=== PATIENT | male | born 1940 | race Caucasian/White ===

== ENCOUNTER 2016-07-19 08:01 | Outpatient (CLI) | payer MEDICARE, OTHER ==
[2016-07-19 11:07] LABS: BASOPHILS % (AUTO) 0.3 %; EOSINOPHILS # (AUTO) 0.2 10^3/uL (0.0-0.7); EOSINOPHILS % (AUTO) 3.1 %; HCT - HEMATOCRIT 43.4 % (42.0-52.0); HGB - HEMOGLOBIN 14.8 g/dL (14.0-18.0); LYMPHOCYTES # (AUTO) 1.3 10^3/uL (1.5-3.5); LYMPHOCYTES % (AUTO) 21.7 %; MEAN CORPUSCULAR HEMOGLOBIN 32.2 pg (27.0-31.0); MEAN CORPUSCULAR HGB CONC 34.1 g/dL (32.0-36.0); MEAN CORPUSCULAR VOLUME 94.6 fL (80.0-94.0); MEAN PLATELET VOLUME 9.6 fL (7.4-11.4); MONOCYTES # (AUTO) 0.9 10^3/uL (0.0-1.0); MONOCYTES % (AUTO) 15.4 %; NEUTROPHILS # (AUTO) 3.5 10^3/uL (1.5-6.6); NEUTROPHILS % (AUTO) 59.5 %; RED BLOOD COUNT 4.59 10^6/uL (4.70-6.10); RED CELL DISTRIBUTION WIDTH 14.2 % (12.0-15.0); UNCORRECTED WHITE BLOOD COUNT 5.9 x10^3/uL; WHITE BLOOD COUNT 5.9 x10^3/uL (4.8-10.8)
[2016-07-19 11:23] LABS: ALBUMIN/GLOBULIN RATIO 1.4 (1.0-2.2); BILIRUBIN,TOTAL 0.9 mg/dL (0.2-1.0); BUN - BLOOD UREA NITROGEN 21 mg/dL (6-20); CALCIUM 9.1 mg/dL (8.5-10.3); CARBON DIOXIDE - CO2 28 mmol/L (21-32); CHLORIDE 106 mmol/L (101-111); CHOL/HDL RATIO 2.6 (<5.0); CHOLESTEROL 204 mg/dL; GFR - MDRD 72 (>89); GLUCOSE 93 mg/dL (70-100); HDL CHOLESTEROL 77 mg/dL; LDL/HDL RATIO 1.5 (<3.6); POTASSIUM 3.9 mmol/L (3.5-5.0); SODIUM 140 mmol/L (135-145); TOTAL PROTEIN 6.8 g/dL (6.7-8.2); TRIGLYCERIDES 60 mg/dL; URIC ACID 3.7 mg/dL (2.6-7.2); VLDL CHOLESTEROL 12 mg/dL
== END 2016-07-19 08:02 | disposition home or self-care (01) ==
LOC: LAB.F 08:01
PROVIDERS: ATTEND Family Medicine
DX: Z00.00 Encounter for general adult medical examination without abnormal findings (principal)
CPT/HCPCS: 36415; 80053; 80061; 84550; 85025

== ENCOUNTER 2017-09-03 10:51 | Outpatient (CLI) | payer MEDICARE, OTHER ==
[2017-09-03 18:06] LABS: ALBUMIN 3.6 g/dL (3.2-5.5); ALBUMIN/GLOBULIN RATIO 1.1 (1.0-2.2); ALKALINE PHOSPHATASE 61 IU/L (42-121); ALT ALANINE AMINOTRANSFERASE 16 IU/L (10-60); AST ASPARTATE AMINOTRANSFERASE 26 IU/L (10-42); BILIRUBIN,TOTAL 0.9 mg/dL (0.2-1.0); BUN - BLOOD UREA NITROGEN 15 mg/dL (6-20); CALCIUM 8.9 mg/dL (8.5-10.3); CARBON DIOXIDE - CO2 28 mmol/L (21-32); CHLORIDE 107 mmol/L (101-111); CHOL/HDL RATIO 2.7 (<5.0); CHOLESTEROL 213 mg/dL; CREATININE 0.9 mg/dL (0.6-1.2); GFR - MDRD 81 (>89); GLUCOSE 92 mg/dL (70-100); HDL CHOLESTEROL 80 mg/dL; LDL CHOLESTEROL,CALCULATED 120 mg/dL; LDL/HDL RATIO 1.5 (<3.6); SODIUM 140 mmol/L (135-145); TOTAL PROTEIN 6.9 g/dL (6.7-8.2); URIC ACID 3.8 mg/dL (2.6-7.2); VLDL CHOLESTEROL 13 mg/dL
== END 2017-09-03 10:52 | disposition home or self-care (01) ==
LOC: LAB.F 10:51
PROVIDERS: ATTEND Family Medicine
DX: Z00.00 Encounter for general adult medical examination without abnormal findings (principal); E78.5 Hyperlipidemia, unspecified; I10 Essential (primary) hypertension; C61 Malignant neoplasm of prostate; M10.9 Gout, unspecified
CPT/HCPCS: 36415; 80053; 80061; 83721; 84153; 84550

== ENCOUNTER 2017-11-04 07:40 | Day surgery (SDC) | payer MEDICARE, OTHER ==
[2017-11-04] MEDS ORDERED: LACTATED RINGERS 1,000 ML IV ONE (08:23)
[2017-11-04] MEDS ORDERED: MIDAZOLAM 2 MG/2 ML VIAL IVP ONE (09:30)
[2017-11-04] MEDS ORDERED: fentaNYL 250 MCG/5 ML VIAL IVP ONE (09:30)
[2017-11-04 10:24] VITALS: BP 122/78
== END 2017-11-04 07:41 | disposition home or self-care (01) ==
LOC: SDS 07:40
PROVIDERS: ATTEND Surgery
PROC: 0DBL8ZZ Excision of Transverse Colon, Via Natural or Artificial Opening Endoscopic (ICD-10-PCS; 2017-11-04)
PROC: 0DBP8ZZ Excision of Rectum, Via Natural or Artificial Opening Endoscopic (ICD-10-PCS; principal; 2017-11-04 09:00)
DX: D12.3 Benign neoplasm of transverse colon (principal); K57.30 Diverticulosis of large intestine without perforation or abscess without bleeding; K64.8 Other hemorrhoids; I10 Essential (primary) hypertension; K44.9 Diaphragmatic hernia without obstruction or gangrene
CPT/HCPCS: 45385; J7120

== ENCOUNTER 2018-03-05 20:23 | Outpatient (CLI) | payer MEDICARE, OTHER ==
--- NOTE | 2018-03-10 12:11 | Ultrasound Report ---
Reason: LT LEG EDEMA Procedure Date: 03/05/2018 Accession Number: [id number] / [id number] Procedure: US - Duplex Ext Veins Left CPT Code: FULL RESULT: EXAM: LEFT LOWER EXTREMITY VENOUS ULTRASOUND EXAM DATE: 03/05/2018 09:18 PM. CLINICAL HISTORY: LT LEG EDEMA. COMPARISON: No prior imaging of the left lower extremity. DUPLEX EXT VEINS RIGHT 07/11/2015 6:01 PM. TECHNIQUE: Real-time sonographic vascular imaging was performed by the roadside mechanic through the lower extremity utilizing both color-flow and Doppler spectral analysis. Multiple field sales representative static images were saved for review. FINDINGS: Common Femoral Vein (CFV): Normal. CFV-GSV Junction: Normal. Profunda Femoral Vein (PFV): Normal. Femoral Vein (FV) Prox: Normal. Femoral Vein (FV) Mid: Normal. Femoral Vein (FV) Dist: Normal. Popliteal Vein: Normal. Posterior Tibial Veins: Visualization is somewhat limited. No thrombus identified. Peroneal Veins: Visualization is somewhat limited. No thrombus identified. Other: None. IMPRESSION: No evidence for deep venous thrombosis in the left lower extremity. Visualization of left calf veins is somewhat limited. RADIA
== END 2018-03-05 20:24 | disposition home or self-care (01) ==
LOC: DI 20:23
PROVIDERS: ATTEND Internal Medicine
DX: R60.0 Localized edema (principal); Z86.718 Personal history of other venous thrombosis and embolism

== ENCOUNTER 2018-12-19 08:41 | Outpatient (CLI) | payer MEDICARE, OTHER ==
[2018-12-19 10:21] LABS: ALBUMIN 3.7 g/dL (3.2-5.5); ALBUMIN/GLOBULIN RATIO 1.2 (1.0-2.2); ALKALINE PHOSPHATASE 60 IU/L (42-121); ALT ALANINE AMINOTRANSFERASE 14 IU/L (10-60); AST ASPARTATE AMINOTRANSFERASE 27 IU/L (10-42); BILIRUBIN,TOTAL 1.1 mg/dL (0.2-1.0); BUN - BLOOD UREA NITROGEN 21 mg/dL (6-20); CALCIUM 8.9 mg/dL (8.5-10.3); CARBON DIOXIDE - CO2 26 mmol/L (21-32); CHLORIDE 109 mmol/L (101-111); CHOL/HDL RATIO 2.5 (<5.0); CHOLESTEROL 190 mg/dL; GFR - MDRD 72 (>89); GLUCOSE 85 mg/dL (70-100); HDL CHOLESTEROL 75 mg/dL; LDL CHOLESTEROL,CALCULATED 101 mg/dL; LDL/HDL RATIO 1.3 (<3.6); SODIUM 143 mmol/L (135-145); TOTAL PROTEIN 6.7 g/dL (6.7-8.2); URIC ACID 3.6 mg/dL (2.6-7.2); VLDL CHOLESTEROL 14 mg/dL
== END 2018-12-19 08:42 | disposition home or self-care (01) ==
LOC: LAB.S 08:41
PROVIDERS: ATTEND Internal Medicine
DX: E78.5 Hyperlipidemia, unspecified (principal); M10.9 Gout, unspecified
CPT/HCPCS: 36415; 80053; 80061; 83721; 84550

== ENCOUNTER 2019-03-17 09:57 | Inpatient (IN) | payer MEDICARE, OTHER ==
[2019-03-17 10:46] LABS: BASOPHILS % (AUTO) 0.4 %; EOSINOPHILS % (AUTO) 0.4 %; HGB - HEMOGLOBIN 16.3 g/dL (14.0-18.0); LYMPHOCYTES % (AUTO) 10.9 %; MEAN CORPUSCULAR HGB CONC 33.6 g/dL (32.0-36.0); MEAN CORPUSCULAR VOLUME 95.3 fL (80.0-94.0); MEAN PLATELET VOLUME 10.6 fL (7.4-11.4); MONOCYTES % (AUTO) 13.5 %; NEUTROPHILS % (AUTO) 74.4 %; PLT - PLATELET COUNT 140 10^3/uL (130-450); RED BLOOD COUNT 5.09 10^6/uL (4.70-6.10); WHITE BLOOD COUNT 11.3 x10^3/uL (4.8-10.8)
[2019-03-17 10:50] LABS: ABNORMAL LYMPHS % (MANUAL) 0 %; BAND NEUTROPHILS % (MANUAL) 0 %
[2019-03-17 11:01] LABS: ALBUMIN 4.1 g/dL (3.2-5.5); ALBUMIN/GLOBULIN RATIO 1.2 (1.0-2.2); BILIRUBIN,TOTAL 1.5 mg/dL (0.2-1.0); CALCIUM 8.7 mg/dL (8.5-10.3); CREATININE 1.2 mg/dL (0.6-1.2); TOTAL PROTEIN 7.5 g/dL (6.7-8.2)
--- NOTE | 2019-03-17 11:05 | XRAY Report ---
Reason: CHEST PAIN Procedure Date: 03/17/2019 Accession Number: [id number] / [id number] Procedure: XR - Chest 2 View X-Ray CPT Code: 35097 Final Report FULL RESULT: EXAM: CHEST RADIOGRAPHY 2 VIEWS EXAM DATE: 03/17/2019. CLINICAL HISTORY: Chest pain. COMPARISON: None. TECHNIQUE: PA and lateral views. FINDINGS: Lungs/Pleura: Normal vasculature. The lungs are clear. Mild elevation of the right diaphragm from an anterior eventration. No pleural fluid or pneumothorax. Mediastinum: Normal cardiac and mediastinal contours. Bones: Bridging osteophytes at multiple levels of the spine consistent with diffuse idiopathic skeletal hyperostosis. IMPRESSION: No acute abnormality. RADIA
[2019-03-17 11:25] LABS: EOSINOPHILS # (MANUAL) 0.1 10^3/uL (0-0.7); LYMPHOCYTES # (MANUAL) 1.2 10^3/uL (1.5-3.5); LYMPHOCYTES % (MANUAL) 11 %; MONOCYTES # (MANUAL) 1.9 10^3/uL (0.0-1.0)
[2019-03-17 11:26] LABS: DIFFERENTIAL COMMENT MANUAL DIFFERENTIAL; PLATELET ESTIMATE, MANUAL NORMAL (130-450,000) (NORMAL); PLATELET MORPHOLOGY NORMAL APPEARANCE (NORMAL); RBC MORPHOLOGY (MULTIPLE) NORMAL APPEARANCE (NORMAL)
--- NOTE | 2019-03-17 11:34 | ED Physician Documentation ---
PD HPI CHEST PAIN - Stated complaint Stated Complaint: SOA/DIZZINESS - Chief complaint Chief Complaint: Cardiac - History obtained from History obtained from: Patient - History of Present Illness Timing - onset: How many days ago (10-14) Timing - onset during: Light activity, Exertion Timing - duration: Minutes Timing - details: Abrupt onset Pain level now: 0 Quality: Tightness Location: Substernal Improved by: Rest Worsened by: Exertion Associated symptoms: Shortness of air, Feeling faint / dizzy. No: Diaphoresis, Nausea, Vomiting, Palpitations, Cough Similar symptoms before: Has not had sx before Recently seen: Clinic - Additional information Additional information: This is an 78-year-old man who has been experiencing some shortness of breath and wooziness over the past 10 to 14 days whenever he exerts any energy. He says his chest gets really tight and it will resolve if he stops the activity. There were a couple times that he actually had to get down onto his knees. The patient has never had pain like this before. He denies any history of [place]. He is gotten almost to the point that he passed out but not actually lost consciousness. He does not break out in a sweat. No nausea or vomiting. 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 He does not know why he got the DVT. He has experienced some left leg edema about a month ago and was started on Lasix by his primary care provider and the swelling seemed to have resolved. He went to his primary care provider's office today and they sent him here for evaluation. Review of Systems Constitutional: denies: Fever Eyes: denies: Loss of vision Ears: denies: Ear pain Nose: denies: Rhinorrhea / runny nose Throat: denies: Sore throat Cardiac: reports: Chest pain / pressure Respiratory: reports: Dyspnea. denies: Cough GI: denies: Nausea, Vomiting : reports: Other (Patient has had a radical prostatectomy.). denies: Dysuria Skin: denies: Rash Neurologic: reports: Near syncope Endocrine: reports: Other (He is not diabetic. He is not currently anticoagulated.) PD PAST MEDICAL HISTORY - Past Medical History Cardiovascular: Hypertension Respiratory: None Endocrine/Autoimmune: None GI: None, Other : Kidney stones HEENT: None Psych: None Musculoskeletal: Gout Derm: None - Past Surgical History General: Colonoscopy, Other HEENT: Cataracts, Tonsil/Adenoidectomy - Present Medications Home Medications: Ambulatory Orders Medication Instructions Recorded Confirmed Multivitamin [Multiple Vitamins] 1 tab PO DAILY 11/04/17 03/17/19 Felodipine [Felodipine ER] 10 mg PO DAILY 03/17/19 03/17/19 allopurinoL [Allopurinol] 300 mg PO DAILY 03/17/19 03/17/19 lisinopriL [Lisinopril] 20 mg PO DAILY 03/17/19 03/17/19 - Allergies Allergies/Adverse Reactions: Allergies Allergy/AdvReac Type Severity Reaction Status Date / Time No Known Drug Allergies Allergy Verified 03/17/19 10:05 PD ED PE NORMAL - Vitals Vital signs reviewed: Yes - General General: Alert and oriented X 3, No acute distress, Well developed/nourished, Other (Very pleasant thin 78-year-old man is not in any acute distress.) - HEENT HEENT: Atraumatic, PERRL, EOMI, Moist mucous membranes - Neck Neck: No adenopathy, Thyroid normal - Cardiac Cardiac: RRR, No murmur, Strong equal pulses - Respiratory Respiratory: No respiratory distress, Clear bilaterally - Abdomen Abdomen: Normal bowel sounds, Soft, No organomegaly - Derm Derm: Normal color, Warm and dry, No rash - Extremities Extremities: No: No edema (There is trace pretibial edema and he has on compression stockings) - Neuro Neuro: Alert and oriented X 3, technology analyst 2-12 intact, No motor deficit, No sensory deficit, Normal speech - Psych Psych: Normal mood, Normal affect Results - Vitals Vitals: Vital Signs - 24 hr 03/17/19 03/17/19 03/17/19 10:05 11:32 13:00 Temperature 37.1 C Heart Rate 93 100 100 Respiratory 20 16 14 Rate Blood Pressure 174/88 H 155/106 H 146/95 H O2 Saturation 94 92 92 03/17/19 15:00 Temperature Heart Rate 90 Respiratory 21 Rate Blood Pressure 146/95 H O2 Saturation 93 Oxygen O2 Source Nasal cannula - EKG (time done) 1013 Rate: Rate (enter#) (107]) Rhythm: NSR, Other (PACs) Intervals: No: Wide QRS Ischemia: Q waves (Lead III), Non specific changes - Labs Labs: Laboratory Tests 03/17/19 03/17/19 03/17/19 10:35 10:35 10:35 WBC 11.3 H RBC 5.09 Hgb 16.3 Hct 48.5 MCV 95.3 H MCH 32.0 H MCHC 33.6 RDW 14.0 Plt Count 140 MPV 10.6 Neut # (Auto) Not Reportable Lymph # (Auto) Not Reportable Screven # (Auto) Not Reportable Eos # (Auto) Not Reportable Baso # (Auto) Not Reportable Absolute Nucleated RBC Not Reportable Total Counted 100 Band Neuts % (Manual) 0 Abnorm Lymph % (Manual) 0 Nucleated RBC % Not Reportable Neutrophils # (Manual) 8.0 H Lymphocytes # (Manual) 1.2 L Monocytes # (Manual) 1.9 H Eosinophils # (Manual) 0.1 Basophils # (Manual) 0.0 Differential Comment MANUAL DIFFERENTIAL Platelet Estimate NORMAL (130-450,000) Platelet Morphology NORMAL APPEARANCE RBC Morph Micro Appear NORMAL APPEARANCE PT INR D-Dimer Anti-Xa Level Sodium 140 Potassium 3.7 Chloride 105 Carbon Dioxide 23 Anion Gap 12.0 BUN 25 H Creatinine 1.2 Estimated GFR (MDRD) 58 L Glucose 103 H Calcium 8.7 Total Bilirubin 1.5 H AST 24 ALT 14 Alkaline Phosphatase 64 Troponin I High Sens 36.4 H* B-Natriuretic Peptide Total Protein 7.5 Albumin 4.1 Globulin 3.4 Albumin/Globulin Ratio 1.2 Lipase 22 03/17/19 03/17/19 03/17/19 10:35 14:06 15:10 WBC RBC Hgb Hct MCV MCH MCHC RDW Plt Count MPV Neut # (Auto) Lymph # (Auto) Screven # (Auto) Eos # (Auto) Baso # (Auto) Absolute Nucleated RBC Total Counted Band Neuts % (Manual) Abnorm Lymph % (Manual) Nucleated RBC % Neutrophils # (Manual) Lymphocytes # (Manual) Monocytes # (Manual) Eosinophils # (Manual) Basophils # (Manual) Differential Comment Platelet Estimate Platelet Morphology RBC Morph Micro Appear PT 12.7 H INR 1.1 D-Dimer > 1050.0 H Anti-Xa Level 1.5 H* Sodium Potassium Chloride Carbon Dioxide Anion Gap BUN Creatinine Estimated GFR (MDRD) Glucose Calcium Total Bilirubin AST ALT Alkaline Phosphatase Troponin I High Sens 45.2 H* B-Natriuretic Peptide Total Protein Albumin Globulin Albumin/Globulin Ratio Lipase 03/17/19 03/17/19 15:10 15:10 WBC 9.2 RBC 4.91 Hgb 15.7 Hct 46.4 MCV 94.5 H MCH 32.0 H MCHC 33.8 RDW 14.0 Plt Count 125 L MPV 11.0 Neut # (Auto) Lymph # (Auto) Screven # (Auto) Eos # (Auto) Baso # (Auto) Absolute Nucleated RBC Total Counted Band Neuts % (Manual) Abnorm Lymph % (Manual) Nucleated RBC % Neutrophils # (Manual) Lymphocytes # (Manual) Monocytes # (Manual) Eosinophils # (Manual) Basophils # (Manual) Differential Comment Platelet Estimate Platelet Morphology RBC Morph Micro Appear PT INR D-Dimer Anti-Xa Level Sodium Potassium Chloride Carbon Dioxide Anion Gap BUN Creatinine Estimated GFR (MDRD) Glucose Calcium Total Bilirubin AST ALT Alkaline Phosphatase Troponin I High Sens B-Natriuretic Peptide 928 H Total Protein Albumin Globulin Albumin/Globulin Ratio Lipase - Rads (name of study) ct angio chest Radiology: Discussed with rads, Critical result, See rad report (Multiple bilateral pulmonary emboli without evidence of right heart strain.) PD MEDICAL DECISION MAKING - ED course Complexity details: reviewed results, re-evaluated patient, considered differential, d/w patient, d/w family, d/w knowledge management consultant ED course: Late entry: Patient's laboratory studies showed an elevated d-dimer greater than 1000. His troponin was also up around 36. He is not anemic. CT angiogram was obtained of the chest that showed multiple large pulmonary emboli in both main arteries and some sub-segmental artery pulmonary emboli. No evidence of right heart strain. Results were discussed with patient and he consented to heparin which was started. Case was discussed with the hospitalist given the size of these PEs they were concerned that he may be a candidate for intra- arterial thrombolyzes and request that I speak to a entry level account executive. I spoke to the entry level account executive/critical care physician at [facility], Dr Giordano. He felt at this early stage of the work-up with the patient's vital signs what they are and no evidence of right heart strain on the CT scan that he could be admitted here to complete the work-up and transfer if things change. Yousef agreed except the patient for admission. - Critical Care Time(min): 35 Time Includes: Direct patient care, Review records, Reassess patient, Document care, Coordinate care, Medical consult, Family consult for tx dec Data interpretation: Labs, CXR Departure - Departure Disposition: 66 [facility] DC/Xfer Clinical Impression: Pulmonary embolism and infarction Discharge Date/Time: 03/17/19 16:09
[2019-03-17] MEDS ORDERED: ASPIRIN CHEW 81 MG TABLET PO STA (11:44)
[2019-03-17 12:03] LABS: INR 1.1 (0.8-1.2); PT - PROTHROMBIN TIME 12.7 secs (9.9-12.6)
[2019-03-17 12:11] LABS: D-DIMER > 1050.0 ng/mL (200.0-255.0)
[2019-03-17] MEDS ORDERED: IOVERSOL 320 100 ML VIAL IVP ONE ×2 (12:47→13:29)
--- NOTE | 2019-03-17 14:22 | CT Report ---
Reason: chest pain Procedure Date: 03/17/2019 Accession Number: [id number] / [id number] Procedure: CT - ANGIO CHEST W/WO CPT Code: Final Report FULL RESULT: EXAM: CT ANGIOGRAM CHEST EXAM DATE: 03/17/2019 01:28 PM. CLINICAL HISTORY: Chest pain. COMPARISON: CHEST 1 VIEW 03/17/2019 10:18 AM. TECHNIQUE: Routine helical imaging was performed through the chest in the pulmonary arterial phase. IV Contrast: OPTI 320 80ML. Reconstructions: Coronal 3-D MIP reconstructions.Sagittal and coronal. In accordance with CT protocol optimization, one or more of the following dose reduction techniques were utilized for this exam: automated exposure control, adjustment of mA and/or KV based on patient size, or use of iterative reconstructive technique. FINDINGS: Pulmonary Arteries: Diagnostic quality: Adequate through the segmental arteries. Hypodense filling defects are seen in bilateral main pulmonary arteries, extending into both upper lobes, middle and lower lobe pulmonary arteries with scattered extension into segmental and subsegmental arteries. Findings are consistent with acute pulmonary emboli with overall moderate clot burden. Pulmonary infarct/wedge shaped ground glass opacities are seen in both lower lobes, left greater than right. Mild atelectatic scarring is seen in right middle lobe lingula and both lung bases. RV/LV is within normal limits. There is no interventricular septal bowing. There is no reflux of contrast material in the IVC. Lungs/Pleura: No effusions or pneumothorax. Mediastinum: Normal. No cardiac enlargement or adenopathy. Thoracic Aorta: Unremarkable. Upper Abdomen: A 2 cm hypodense fluid containing cystic lesion in superior pole of right kidney. A smaller simple fluid containing lesion in mid polar region of right kidney. Other: None. IMPRESSION: Hypodense filling defects in bilateral main pulmonary arteries, extending into both upper lobes, middle and lower lobe pulmonary arteries with scattered extension into segmental and subsegmental arteries. Findings are consistent with acute pulmonary emboli with overall moderate clot burden. Pulmonary infarct in posteroinferior left lower lobe. No suggestion of right heart strain. RADIA The call report notification system was initiated by Dr. Kamilah Lugo at 02:14 PM on 03/17/2019. The above call report findings were discussed with Jerri Ponce by Dr. Kamilah Lugo at 02:22 PM on 03/17/2019.
[2019-03-17] MEDS: HEPARIN 25000UNITS/500ML (D5W) 25,000 UNIT/500 ML BAG IV SCH (14:53)
[2019-03-17 15:14] LABS: HGB - HEMOGLOBIN 15.7 g/dL (14.0-18.0); MEAN CORPUSCULAR HGB CONC 33.8 g/dL (32.0-36.0); MEAN CORPUSCULAR VOLUME 94.5 fL (80.0-94.0); RED BLOOD COUNT 4.91 10^6/uL (4.70-6.10); WHITE BLOOD COUNT 9.2 x10^3/uL (4.8-10.8)
[2019-03-17] MEDS ORDERED: SODIUM CHLORIDE FLUSH 0.9% 10 ML SYRINGE IVP PRN (15:31)
--- NOTE | 2019-03-17 15:48 | HISTORY & PHYSICAL EXAMINATION ---
Chief Complaint - Chief Complaint Chief Complaint: Diziness History of Present Illness - Admitted From Admitted From:: Home - History Obtained From Records Reviewed: Yes History obtained from: Patient, ER Physician, EMR - History of Present Illness HPI Comment/Other: This is a very pleasant 78-year-old male with a past medical history significant for hypertension, history of DVT that was treated with Coumadin, history of prostate cancer status post prostatectomy who presents today complaining of dizziness, weakness, dyspnea. He states his symptoms first began about 1 month ago we noticed that he was becoming lightheaded and dizzy when he was exerting himself. He noticed this would occur when he would go up a set of stairs. He reports some shortness of breath as well. He denies chest pain but does complain of some chest tightness over the right side. He denies any syncope or loss of consciousness. He reports once or twice he felt really weak and lightheaded that he had to get down to his knees but he never passed out. As his symptoms persisted, he went to his primary care physician this morning and was then referred to the emergency department. The patient states he is a history of DVT in his right lower extremity that was treated with Coumadin about 5 years ago and that he was treated for 1 year. He was never told what the etiology of the DVT was. He states he does have a prior history of prostate cancer about 10 years ago and that he went underwent prostatectomy. He reports no current history of cancer. He reports no family history of DVT. Denies any recent travel. He reports no cardiac history except for hypertension. States he has been having some lower extremity edema over the past month. He saw his physician who prescribed him a diuretic and he has had improvement in his edema since then. In the emergency department, he is found to be afebrile with a temperature of 37.1 C. He was tachycardic in the 90s. Blood pressure was 155/106. He was not tachypneic. He was initially saturating 94% on room air but he dropped to the high 80s and was placed on 2 L of oxygen via nasal cannula and is now saturating 93 to 94%. Labs were significant for a troponin of 36.4. His chest x-ray did not show an infiltrate. CTA of the chest showed multiple bilateral pulmonary emboli including the main pulmonary arteries and extending into the upper lobes, middle, and lower lobe pulmonary arteries. There is overall moderate clot burden. There is also bilateral pulmonary infarcts. There is no suggestion of right heart strain. The findings of the CT were discussed with the natural resources technician at [facility] who felt that the patient did not want transfer at the moment. Medicine was consulted for admission. I did discuss with the patient regarding goals of care and he would like to be a DNR. History - Past Medical History Cardiovascular: reports: Hypertension, Deep vein thrombosis Respiratory: reports: None Endocrine/Autoimmune: reports: None GI: reports: None, Other : reports: Kidney stones HEENT: reports: None Psych: reports: None Musculoskeletal: reports: Gout Derm: reports: None MRSA Hx?: No - Past Surgical History General: reports: Colonoscopy, Other HEENT: reports: Cataracts, Tonsil/Adenoidectomy - Family & Social History Family History Comment/Other: No family history of DVT. His father had cardiac problems including coronary artery disease. Living arrangement: At home Living Situation: With spouse/s.o. Social History Notes: He lives at home with his although she visits [place] every other month for a few weeks to help with her mother who has significant dementia. 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 He does not smoke. He occasi onally drinks alcohol. Meds/Allgy - Home Medications Home Medications: Ambulatory Orders Medication Instructions Recorded Confirmed Multivitamin [Multiple Vitamins] 1 tab PO DAILY 11/04/17 03/17/19 Felodipine [Felodipine ER] 10 mg PO DAILY 03/17/19 03/17/19 allopurinoL [Allopurinol] 300 mg PO DAILY 03/17/19 03/17/19 lisinopriL [Lisinopril] 20 mg PO DAILY 03/17/19 03/17/19 - Allergies Allergies/Adverse Reactions: Allergies Allergy/AdvReac Type Severity Reaction Status Date / Time No Known Drug Allergies Allergy Verified 03/17/19 10:05 Review of Systems - Constitutional Constitutional: reports: Fatigue. denies: Fever, Chills, Weakness - Cardiovascular Cariovascular: reports: Edema, Lightheadedness, Exertional dyspnea, Decr. exercise tolerance. denies: Chest pain, Syncope - Respiratory Respiratory: reports: SOB with exertion. denies: Cough, SOB at rest - Gastrointestinal Gastrointestinal: denies: Abdominal pain, Nausea, Vomiting - Genitourinary Genitourinary: denies: Dysuria, Frequency, Urgency - Integumentary Integumentary: denies: Rash - Neurological Neurological: reports: Dizziness. denies: General weakness, Focal weakness - Hematologic/Lymphatic Hematologic/Lymphatic: denies: Bruising, Bleeding tendencies - All Other Systems All Other Systems: reports: Reviewed and negative Prior Level of Functionality: He is independent with ADLs. Exam - Vital Signs Reviewed Vital Signs: Yes Vital Signs: Vital Signs x48h Temp Pulse Resp BP Pulse Ox 03/17/19 15:00 90 21 146/95 H 93 03/17/19 13:00 100 14 146/95 H 92 03/17/19 11:32 100 16 155/106 H 92 03/17/19 10:05 37.1 C 93 20 174/88 H 94 - Physical Exam General Appearance: positive: No acute distress, Alert Eyes Bilateral: positive: Normal inspection ENT: positive: ENT inspection nml, Other (Nasal cannula in place.) Neck: positive: Nml inspection Respiratory: positive: No respiratory distress, Breath sounds nml. negative: Wheezes, Rales, Rhonchi Cardiovascular: positive: Regular rate & rhythm, Extrasystoles, Tachycardia. negative: Systolic murmur, Diastolic murmur Abdomen: positive: Non-tender, No distention. negative: Tenderness, Guarding, Rebound Skin: positive: No rash, Warm, Dry Extremities: positive: Pedal edema (He has +1 pitting edema in the bilateral lower extremities.), Other (Negative Homans sign. No calf tenderness.) Neurologic/Psychiatric: positive: Oriented x3, Motor nml. negative: Disoriented to person, Disoriented to place, Disoriented to time, Weakness Conclusion/Plan - Problem List (1) Pulmonary embolism and infarction Conclusion/Plan: He has bilateral pulmonary emboli with pulmonary infarct evident on CTA of the chest. He is hypoxic requiring 2 L of oxygen and tachycardic in the 90s. Fortunately his blood pressure is stable and he is actually slightly hypertensive. There was no evidence of right heart strain on the CTA of the chest. His troponin is elevated in the 30s. EKG reveals sinus tachycardia without ischemic changes. At this time, we will continue the heparin infusion. We will obtain an echocardiogram as soon as possible to evaluate for right heart strain given the clot burden that is evident on the CT. If there is concern for right heart strain, will consult with natural resources technician at [facility] regarding the need for transfer as he may benefit from thrombolytics. We will also obtain Dopplers of the lower extremity. Continue to monitor on telemetry and trend troponin. Check BNP. 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 (2) Hypertension Conclusion/Plan: He has a history of hypertension for which he takes felodipine and lisinopril. He is currently hypertensive with systolic in the 150s. We will hold his home antihypertensives given the pulmonary embolism. (3) History of prostate cancer Conclusion/Plan: Reports a history of prostate cancer approximately 10 years ago that treated w ith prostatectomy. He never received chemotherapy. The last PSA was in 2018 and was within normal limits. - Lab Results Lab results reviewed: Yes Chapito Bones: 03/17/19 15:10 03/17/19 10:35 - Diagnostic Imaging Results Diagnostic Imaging Results: positive: Final report reviewed, Read independently Diagnostic Imaging Results Comments: There are multiple bilateral pulmonary emboli. There is an infarct of the left lower lobe noted. The right ventricle appears larger than the left ventricle. There also appears to be slight reflux of contrast into the IVC. - EKG Results EKG Interpreted Independently: Yes EKG Comparison: No prior EKG EKG Findings: His EKG reveals sinus tachycardia with nonspecific ST segment changes. There are occasional PACs. QTC is prolonged at 491.
[2019-03-17] MEDS: SODIUM CHLORIDE FLUSH 0.9% 10 ML SYRINGE IVP SCH (17:39)
[2019-03-18] MEDS: SODIUM CHLORIDE FLUSH 0.9% 10 ML SYRINGE IVP SCH ×3 (02:24→19:02)
[2019-03-18 03:36] LABS: BASOPHILS % (AUTO) 0.3 %; EOSINOPHILS # (AUTO) 0.1 10^3/uL (0.0-0.7); EOSINOPHILS % (AUTO) 0.8 %; LYMPHOCYTES # (AUTO) 1.3 10^3/uL (1.5-3.5); LYMPHOCYTES % (AUTO) 16.2 %; MEAN CORPUSCULAR HEMOGLOBIN 32.1 pg (27.0-31.0); MEAN CORPUSCULAR HGB CONC 33.6 g/dL (32.0-36.0); MEAN CORPUSCULAR VOLUME 95.7 fL (80.0-94.0); MEAN PLATELET VOLUME 10.8 fL (7.4-11.4); MONOCYTES # (AUTO) 1.3 10^3/uL (0.0-1.0); NEUTROPHILS # (AUTO) 5.1 10^3/uL (1.5-6.6); NEUTROPHILS % (AUTO) 65.4 %; PLT - PLATELET COUNT 137 10^3/uL (130-450); RED BLOOD COUNT 4.67 10^6/uL (4.70-6.10); RED CELL DISTRIBUTION WIDTH 13.9 % (12.0-15.0); WHITE BLOOD COUNT 7.8 x10^3/uL (4.8-10.8)
[2019-03-18 03:41] LABS: CALCIUM 8.2 mg/dL (8.5-10.3); CREATININE 1.1 mg/dL (0.6-1.2); MAGNESIUM 1.9 mg/dL (1.7-2.8)
--- NOTE | 2019-03-18 03:49 | Ultrasound Report ---
Reason: Bilateral pulmonary embolism. Procedure Date: 03/18/2019 Accession Number: [id number] / [id number] Procedure: US - Duplex Ext Veins Bilateral CPT Code: Addended Final Report FULL RESULT: EXAM: BILATERAL LOWER EXTREMITY VENOUS ULTRASOUND EXAM DATE: 03/18/2019 03:00 AM. CLINICAL HISTORY: Bilateral pulmonary embolism. COMPARISON: DUPLEX EXT VEINS LEFT 03/05/2018 8:44 PM DUPLEX EXT VEINS RIGHT 07/11/2015 6:01 PM. TECHNIQUE: Real-time sonographic vascular imaging was performed by the ceramic capacitor processor through the lower extremities utilizing both color-flow and Doppler spectral analysis. Multiple airport representative static images were saved for review. FINDINGS: Right: Common Femoral Vein (CFV): Normal. CFV-GSV Junction: Normal. Profunda Femoral Vein (PFV): Normal. Femoral Vein (FV) Prox: Normal. Femoral Vein (FV) Mid: Normal. Femoral Vein (FV) Dist: Thrombosis. Popliteal Vein: Thrombosis. Posterior Tibial Veins: Thrombosis. Peroneal Veins: Thrombosis. Left: Common Femoral Vein (CFV): Normal. CFV-GSV Junction: Normal. Profunda Femoral Vein (PFV): Normal. Femoral Vein (FV) Prox: Thrombosis. Femoral Vein (FV) Mid: Thrombosis. Femoral Vein (FV) Dist: Thrombosis. Popliteal Vein: Thrombosis. Posterior Tibial Veins: Thrombosis. Peroneal Veins: Thrombosis. 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 IMPRESSION: 1. Right-sided DVT from the distal femoral vein through the calf veins. 2. Left-sided DVT from the proximal femoral vein through the calf veins. 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 RADIA The critical result notification system was initiated by Dr. Burke Cabrera at 03:48 AM on 03/18/2019. ADDENDUM: 03/18/19 04:00 The above critical result findings were discussed with Dr. Rubalcava by Dr. Burke Cabrera at 04:00 AM on 03/18/2019.
[2019-03-18] MEDS: HEPARIN 25000UNITS/500ML (D5W) 25,000 UNIT/500 ML BAG IV SCH (08:20)
--- NOTE | 2019-03-18 11:11 | PROVIDER PROGRESS NOTE ---
Subjective - Prog Note Date Prog Note Date: 03/18/19 - Subjective Subjective: He continues to report feeling well. He denies any chest pain or shortness of breath. He also reports no leg pain. Still hypoxic requiring 3 L of oxygen. He is tolerating a diet without issues. No evidence of bleeding. Current Medications - Current Medications Current Medications: Active Medications Heparin Sodium (Porcine) () 2,300 unit 25 unit/kg (2300 unit) IVP Q6H PRN PRN Reason: ANTI-XA < 0.2 Heparin Sodium/Dextrose () 25,000 unit in 500 mls @ 27.6 mls/hr IV .Q18H7M ZAHRA; Protocol Sodium Chloride (Normal Saline Flush 0.9%) 10 ml IVP 0100,0900,1700 [facility] Last Admin: 03/18/19 08:20 Dose: 10 ml Sodium Chloride (Normal Saline Flush 0.9%) 10 ml IVP PRN PRN PRN Reason: NEEDED PER PROVIDER ORDERS RX: Multivitamin [Multiple Vitamins] 1 tab PO DAILY 11/04/17 RX: Felodipine [Felodipine ER] 10 mg PO DAILY 03/17/19 allopurinoL [Allopurinol] 300 mg PO DAILY 03/17/19 lisinopriL [Lisinopril] 20 mg PO DAILY 03/17/19 Objective - Vital Signs/Intake & Output Reviewed Vital Signs: Yes Vital Signs: Vital Signs x48h Temp Pulse Resp BP Pulse Ox 03/18/19 11:00 87 21 141/93 H 94 03/18/19 10:00 85 19 136/81 H 95 03/18/19 09:00 36.4 C L 106 H 23 137/82 H 94 03/18/19 08:00 37.0 C 86 16 149/89 H 94 03/18/19 07:00 82 17 135/82 H 95 03/18/19 06:00 75 17 131/85 H 93 03/18/19 05:00 75 16 124/81 H 97 03/18/19 04:00 37.4 C 71 18 119/83 H 92 Intake & Output: Intake & Output 03/15/19 03/16/19 03/17/19 03/18/19 23:59 23:59 23:59 23:59 Intake Total 986.488 9151.592 Output Total 380 650 Balance -187.553 499.592 - Objective General Appearance: positive: No acute distress Eyes Bilateral: positive: Normal inspection, Conjunctivae nml ENT: positive: ENT inspection nml, Other (Nasal cannula in place.) Neck: positive: Nml inspection Respiratory: positive: No respiratory distress. negative: Wheezes, Rales, Rhonchi Cardiovascular: positive: Regular rate & rhythm, No murmur, Extrasystoles. negative: Irregularly irregular, Tachycardia, Bradycardia, Systolic murmur, Diastolic murmur Abdomen: positive: Non-tender, No distention. negative: Tenderness Skin: positive: No rash, Warm, Dry Extremities: positive: Full ROM, Pedal edema (Trace pitting edema in the bilateral lower extremities.) Neurologic/Psychiatric: positive: Oriented x3. negative: Disoriented to person, Disoriented to place, Disoriented to time - Lab Results Fish Bones: 03/18/19 03:25 03/18/19 03:25 Other Labs: Lab Results x24hrs 03/18/19 03/18/19 03/18/19 Range/Units 03:25 03:25 03:25 WBC 7.8 (4.8-10.8) x10^3/uL RBC 4.67 L (4.70-6.10) 10^6/uL Hgb 15.0 (14.0-18.0) g/dL Hct 44.7 (42.0-52.0) % MCV 95.7 H (80.0-94.0) fL MCH 32.1 H (27.0-31.0) pg MCHC 33.6 (32.0-36.0) g/dL RDW 13.9 (12.0-15.0) % Plt Count 137 (130-450) 10^3/uL MPV 10.8 (7.4-11.4) fL Neut # (Auto) 5.1 Lymph # (Auto) 1.3 L [place] # (Auto) 1.3 H Eos # (Auto) 0.1 Baso # (Auto) 0.0 Absolute Nucleated RBC 0.00 Total Counted Band Neuts % (Manual) (0 - 10) % Abnorm Lymph % (Manual) % Nucleated RBC % 0.0 Neutrophils # (Manual) (1.5-6.6) 10^3/uL Lymphocytes # (Manual) (1.5-3.5) 10^3/uL Monocytes # (Manual) (0.0-1.0) 10^3/uL Eosinophils # (Manual) (0-0.7) 10^3/uL Basophils # (Manual) (0-0.1) 10^3/uL Differential Comment Platelet Estimate (NORMAL) Platelet Morphology (NORMAL) RBC Morph Micro Appear (NORMAL) PT (9.9-12.6) secs INR (0.8-1.2) D-Dimer (200.0-255.0) ng/mL Anti-Xa Level 0.6 ( - 0.7) U/mL Sodium 140 (135-145) mmol/L Potassium 3.9 (3.5-5.0) mmol/L Chloride 106 (101-111) mmol/L Carbon Dioxide 25 (21-32) mmol/L Anion Gap 9.0 (6-13) BUN 22 H (6-20) mg/dL Creatinine 1.1 (0.6-1.2) mg/dL Estimated GFR (MDRD) 64 L (>89) Glucose 104 H (70-100) mg/dL Calcium 8.2 L (8.5-10.3) mg/dL Magnesium 1.9 (1.7-2.8) mg/dL Troponin I High Sens (2.3-19.7) ng/L B-Natriuretic Peptide (5-100) pg/mL Nasal Screen MRSA (PCR) (NEGATIVE) 03/17/19 03/17/19 03/17/19 Range/Units 21:27 18:04 16:20 WBC (4.8-10.8) x10^3/uL RBC (4.70-6.10) 10^6/uL Hgb (14.0-18.0) g/dL Hct (42.0-52.0) % MCV (80.0-94.0) fL MCH (27.0-31.0) pg MCHC (32.0-36.0) g/dL RDW (12.0-15.0) % Plt Count (130-450) 10^3/uL MPV (7.4-11.4) fL Neut # (Auto) Lymph # (Auto) [place] # (Auto) Eos # (Auto) Baso # (Auto) Absolute Nucleated RBC Total Counted Band Neuts % (Manual) (0 - 10) % Abnorm Lymph % (Manual) % Nucleated RBC % Neutrophils # (Manual) (1.5-6.6) 10^3/uL Lymphocytes # (Manual) (1.5-3.5) 10^3/uL Monocytes # (Manual) (0.0-1.0) 10^3/uL Eosinophils # (Manual) (0-0.7) 10^3/uL Basophils # (Manual) (0-0.1) 10^3/uL Differential Comment Platelet Estimate (NORMAL) Platelet Morphology (NORMAL) RBC Morph Micro Appear (NORMAL) PT (9.9-12.6) secs INR (0.8-1.2) D-Dimer (200.0-255.0) ng/mL Anti-Xa Level 0.6 ( - 0.7) U/mL Sodium (135-145) mmol/L Potassium (3.5-5.0) mmol/L Chloride (101-111) mmol/L Carbon Dioxide (21-32) mmol/L Anion Gap (6-13) BUN (6-20) mg/dL Creatinine (0.6-1.2) mg/dL Estimated GFR (MDRD) (>89) Glucose (70-100) mg/dL Calcium (8.5-10.3) mg/dL Magnesium (1.7-2.8) mg/dL Troponin I High Sens 40.0 H* (2.3-19.7) ng/L B-Natriuretic Peptide (5-100) pg/mL Nasal Screen MRSA (PCR) NEGATIVE (NEGATIVE) 03/17/19 03/17/19 03/17/19 Range/Units 15:10 15:10 15:10 WBC 9.2 (4.8-10.8) x10^3/uL RBC 4.91 (4.70-6.10) 10^6/uL Hgb 15.7 (14.0-18.0) g/dL Hct 46.4 (42.0-52.0) % MCV 94.5 H (80.0-94.0) fL MCH 32.0 H (27.0-31.0) pg MCHC 33.8 (32.0-36.0) g/dL RDW 14.0 (12.0-15.0) % Plt Count 125 L (130-450) 10^3/uL MPV 11.0 (7.4-11.4) fL Neut # (Auto) Lymph # (Auto) [place] # (Auto) Eos # (Auto) Baso # (Auto) Absolute Nucleated RBC Total Counted Band Neuts % (Manual) (0 - 10) % Abnorm Lymph % (Manual) % Nucleated RBC % Neutrophils # (Manual) (1.5-6.6) 10^3/uL Lymphocytes # (Manual) (1.5-3.5) 10^3/uL Monocytes # (Manual) (0.0-1.0) 10^3/uL Eosinophils # (Manual) (0-0.7) 10^3/uL Basophils # (Manual) (0-0.1) 10^3/uL Differential Comment Platelet Estimate (NORMAL) Platelet Morphology (NORMAL) RBC Morph Micro Appear (NORMAL) PT (9.9-12.6) secs INR (0.8-1.2) D-Dimer (200.0-255.0) ng/mL Anti-Xa Level 1.5 H* ( - 0.7) U/mL Sodium (135-145) mmol/L Potassium (3.5-5.0) mmol/L Chloride (101-111) mmol/L Carbon Dioxide (21-32) mmol/L Anion Gap (6-13) BUN (6-20) mg/dL Creatinine (0.6-1.2) mg/dL Estimated GFR (MDRD) (>89) Glucose (70-100) mg/dL Calcium (8.5-10.3) mg/dL Magnesium (1.7-2.8) mg/dL Troponin I High Sens (2.3-19.7) ng/L B-Natriuretic Peptide 928 H (5-100) pg/mL Nasal Screen MRSA (PCR) (NEGATIVE) 03/17/19 03/17/19 03/17/19 Range/Units 14:06 10:35 10:35 WBC (4.8-10.8) x10^3/uL RBC (4.70-6.10) 10^6/uL Hgb (14.0-18.0) g/dL Hct (42.0-52.0) % MCV (80.0-94.0) fL MCH (27.0-31.0) pg MCHC (32.0-36.0) g/dL RDW (12.0-15.0) % Plt Count (130-450) 10^3/uL MPV (7.4-11.4) fL Neut # (Auto) Lymph # (Auto) [place] # (Auto) Eos # (Auto) Baso # (Auto) Absolute Nucleated RBC Total Counted Band Neuts % (Manual) (0 - 10) % Abnorm Lymph % (Manual) % Nucleated RBC % Neutrophils # (Manual) (1.5-6.6) 10^3/uL Lymphocytes # (Manual) (1.5-3.5) 10^3/uL Monocytes # (Manual) (0.0-1.0) 10^3/uL Eosinophils # (Manual) (0-0.7) 10^3/uL Basophils # (Manual) (0-0.1) 10^3/uL Differential Comment Platelet Estimate (NORMAL) Platelet Morphology (NORMAL) RBC Morph Micro Appear (NORMAL) PT 12.7 H (9.9-12.6) secs INR 1.1 (0.8-1.2) D-Dimer > 1050.0 H (200.0-255.0) ng/mL Anti-Xa Level ( - 0.7) U/mL Sodium (135-145) mmol/L Potassium (3.5-5.0) mmol/L Chloride (101-111) mmol/L Carbon Dioxide (21-32) mmol/L Anion Gap (6-13) BUN (6-20) mg/dL Creatinine (0.6-1.2) mg/dL Estimated GFR (MDRD) (>89) Glucose (70-100) mg/dL Calcium (8.5-10.3) mg/dL Magnesium (1.7-2.8) mg/dL Troponin I High Sens 45.2 H* 36.4 H* (2.3-19.7) ng/L B-Natriuretic Peptide (5-100) pg/mL Nasal Screen MRSA (PCR) (NEGATIVE) 03/17/19 Range/Units 10:35 WBC 11.3 H (4.8-10.8) x10^3/uL RBC 5.09 (4.70-6.10) 10^6/uL Hgb 16.3 (14.0-18.0) g/dL Hct 48.5 (42.0-52.0) % MCV 95.3 H (80.0-94.0) fL MCH 32.0 H (27.0-31.0) pg MCHC 33.6 (32.0-36.0) g/dL RDW 14.0 (12.0-15.0) % Plt Count 140 (130-450) 10^3/uL MPV 10.6 (7.4-11.4) fL Neut # (Auto) Not Reportable Lymph # (Auto) Not Reportable [place] # (Auto) Not Reportable Eos # (Auto) Not Reportable Baso # (Auto) Not Reportable Absolute Nucleated RBC Not Reportable Total Counted 100 Band Neuts % (Manual) 0 (0 - 10) % Abnorm Lymph % (Manual) 0 % Nucleated RBC % Not Reportable Neutrophils # (Manual) 8.0 H (1.5-6.6) 10^3/uL Lymphocytes # (Manual) 1.2 L (1.5-3.5) 10^3/uL Monocytes # (Manual) 1.9 H (0.0-1.0) 10^3/uL Eosinophils # (Manual) 0.1 (0-0.7) 10^3/uL Basophils # (Manual) 0.0 (0-0.1) 10^3/uL Differential Comment MANUAL DIFFERENTIAL Platelet Estimate NORMAL (130-450,000) (NORMAL) Platelet Morphology NORMAL APPEARANCE (NORMAL) RBC Morph Micro Appear NORMAL APPEARANCE (NORMAL) PT (9.9-12.6) secs INR (0.8-1.2) D-Dimer (200.0-255.0) ng/mL Anti-Xa Level ( - 0.7) U/mL Sodium (135-145) mmol/L Potassium (3.5-5.0) mmol/L Chloride (101-111) mmol/L Carbon Dioxide (21-32) mmol/L Anion Gap (6-13) BUN (6-20) mg/dL Creatinine (0.6-1.2) mg/dL Estimated GFR (MDRD) (>89) Glucose (70-100) mg/dL Calcium (8.5-10.3) mg/dL Magnesium (1.7-2.8) mg/dL Troponin I High Sens (2.3-19.7) ng/L B-Natriuretic Peptide (5-100) pg/mL Nasal Screen MRSA (PCR) (NEGATIVE) ABX Reporting Has patient been on IV antibiotics over the past 48 hours?: No Assessment/Plan - Problem List (1) Pulmonary embolism and infarction Impression: He has bilateral pulmonary emboli with pulmonary infarct as evident on the CT of the chest. Dopplers of lower extremity revealed bilateral DVTs. He is no longer tachycardic and his blood pressure stable but he is hypoxic requiring 3 L of oxygen which is increased from 2 L of oxygen yesterday. There was evidence of right heart strain on the echocardiogram. I did discuss with the ICU at [place] yesterday regarding the need for transfer. They felt that the patient could be transferred with that management would not change likely as he still may not require thrombolytics. I discussed this with the patient who preferred to remain here at this time. His troponins have since peaked and are now declining. His BNP was elevated at greater than 900. For the time being, we will keep him on heparin IV. We will continue to monitor his respiratory status. If his hypoxia worsens, he may still require transfer to higher level of care for possible embolectomy or thrombolytics. If his hypoxia improves, we will then transition him to an oral anticoagulant in preparation for discharge. (2) Hypoxia Impression: Remains hypoxic requiring 3 L of oxygen via nasal cannula. Secondary to the pu lmonary embolism. We will continue supplemental oxygen for goal saturation greater than 92%. His oxygen requirements continued to increase, will discuss with the ICU at [place] again regarding need for transfer for further intervention. (3) Hypertension Impression: He is currently slightly hypertensive with systolic in the 130s. Continue to hold his home antihypertensives for the time being given the bilateral pulmonary embolism and right heart strain as evident on echocardiogram. (4) History of prostate cancer Impression: This was treated with a prostatectomy about 10 years ago. His last PSAin 2017 was within normal limits. Continue outpatient follow-up with his primary care provider.
--- NOTE | 2019-03-18 11:54 | PHARMACY PROGRESS NOTE ---
- Best Possible Medication History Admit Date and Time: 03/17/19 1531 Processed by: Pharmacy Medication History completed: Yes Patient Interview: Completed Secondary Source(s): Physician records, Pharmacy records As the person ultimately responsible for medication therapy, providers are able to order a medication from an existing home medication list in [facility] via the "Reconcile Routine" prior to Confirmation of that medication by marketing support assistant. Such practice is discouraged except when the physician, in their clinical judgment, deems that a medical need exists for a medication without regard to previous use.
[2019-03-19] MEDS: SODIUM CHLORIDE FLUSH 0.9% 10 ML SYRINGE IVP SCH ×2 (02:40→08:23)
[2019-03-19] MEDS: HEPARIN 25000UNITS/500ML (D5W) 25,000 UNIT/500 ML BAG IV SCH ×2 (03:15→07:31)
[2019-03-19 05:16] LABS: BASOPHILS % (AUTO) 0.3 %; EOSINOPHILS # (AUTO) 0.2 10^3/uL (0.0-0.7); EOSINOPHILS % (AUTO) 2.7 %; HGB - HEMOGLOBIN 14.1 g/dL (14.0-18.0); LYMPHOCYTES # (AUTO) 1.2 10^3/uL (1.5-3.5); LYMPHOCYTES % (AUTO) 17.4 %; MEAN CORPUSCULAR HEMOGLOBIN 32.1 pg (27.0-31.0); MEAN CORPUSCULAR HGB CONC 33.6 g/dL (32.0-36.0); MEAN CORPUSCULAR VOLUME 95.7 fL (80.0-94.0); MEAN PLATELET VOLUME 11.1 fL (7.4-11.4); MONOCYTES # (AUTO) 1.2 10^3/uL (0.0-1.0); MONOCYTES % (AUTO) 17.7 %; NEUTROPHILS # (AUTO) 4.1 10^3/uL (1.5-6.6); NEUTROPHILS % (AUTO) 61.8 %; PLT - PLATELET COUNT 130 10^3/uL (130-450); RED BLOOD COUNT 4.39 10^6/uL (4.70-6.10); RED CELL DISTRIBUTION WIDTH 13.7 % (12.0-15.0); WHITE BLOOD COUNT 6.7 x10^3/uL (4.8-10.8)
[2019-03-19 05:23] LABS: CALCIUM 7.7 mg/dL (8.5-10.3); CREATININE 0.9 mg/dL (0.6-1.2); MAGNESIUM 1.8 mg/dL (1.7-2.8)
[2019-03-19] MEDS ORDERED: POTASSIUM CHLORIDE 20 MEQ TABLET PO ONE (08:00)
[2019-03-19 09:29] LABS: HGB - HEMOGLOBIN 16.1 g/dL (14.0-18.0); MEAN CORPUSCULAR HEMOGLOBIN 31.1 pg (27.0-31.0); MEAN CORPUSCULAR HGB CONC 33.1 g/dL (32.0-36.0); MEAN CORPUSCULAR VOLUME 93.8 fL (80.0-94.0); MEAN PLATELET VOLUME 10.8 fL (7.4-11.4); RED BLOOD COUNT 5.18 10^6/uL (4.70-6.10); RED CELL DISTRIBUTION WIDTH 13.8 % (12.0-15.0); WHITE BLOOD COUNT 7.7 x10^3/uL (4.8-10.8)
--- NOTE | 2019-03-19 12:29 | PROVIDER PROGRESS NOTE ---
Objective - Vital Signs/Intake & Output Vital Signs: Vital Signs x48h Temp Pulse Resp BP Pulse Ox 03/19/19 11:10 36.5 C 71 18 138/77 H 94 03/19/19 07:40 36.4 C L 72 18 157/82 H 93 03/19/19 05:05 37.0 C 72 18 126/80 97 Intake & Output: Intake & Output 03/16/19 03/17/19 03/18/19 03/19/19 23:59 23:59 23:59 23:59 Intake Total 349.451 6696.708 1704.884 Output Total 380 850 850 Balance -703.873 8537.708 854.884 - Lab Results Fish Bones: 03/19/19 09:07 03/19/19 04:55 Other Labs: Lab Results x24hrs 03/19/19 03/19/19 03/19/19 Range/Units 09:07 04:55 04:55 WBC 7.7 (4.8-10.8) x10^3/uL RBC 5.18 (4.70-6.10) 10^6/uL Hgb 16.1 (14.0-18.0) g/dL Hct 48.6 (42.0-52.0) % MCV 93.8 (80.0-94.0) fL MCH 31.1 H (27.0-31.0) pg MCHC 33.1 (32.0-36.0) g/dL RDW 13.8 (12.0-15.0) % Plt Count 142 (130-450) 10^3/uL MPV 10.8 (7.4-11.4) fL Neut # (Auto) (1.5-6.6) 10^3/uL Lymph # (Auto) (1.5-3.5) 10^3/uL [place] # (Auto) (0.0-1.0) 10^3/uL Eos # (Auto) (0.0-0.7) 10^3/uL Baso # (Auto) (0.0-0.1) 10^3/uL Absolute Nucleated RBC x10^3/uL Nucleated RBC % /100WBC Anti-Xa Level 0.5 ( - 0.7) U/mL Sodium 139 (135-145) mmol/L Potassium 3.2 L (3.5-5.0) mmol/L Chloride 106 (101-111) mmol/L Carbon Dioxide 23 (21-32) mmol/L Anion Gap 10.0 (6-13) BUN 21 H (6-20) mg/dL Creatinine 0.9 (0.6-1.2) mg/dL Estimated GFR (MDRD) 81 L (>89) Glucose 100 (70-100) mg/dL Calcium 7.7 L (8.5-10.3) mg/dL Magnesium 1.8 (1.7-2.8) mg/dL 03/19/19 Range/Units 04:55 WBC 6.7 (4.8-10.8) x10^3/uL RBC 4.39 L (4.70-6.10) 10^6/uL Hgb 14.1 (14.0-18.0) g/dL Hct 42.0 (42.0-52.0) % MCV 95.7 H (80.0-94.0) fL MCH 32.1 H (27.0-31.0) pg MCHC 33.6 (32.0-36.0) g/dL RDW 13.7 (12.0-15.0) % Plt Count 130 (130-450) 10^3/uL MPV 11.1 (7.4-11.4) fL Neut # (Auto) 4.1 (1.5-6.6) 10^3/uL Lymph # (Auto) 1.2 L (1.5-3.5) 10^3/uL [place] # (Auto) 1.2 H (0.0-1.0) 10^3/uL Eos # (Auto) 0.2 (0.0-0.7) 10^3/uL Baso # (Auto) 0.0 (0.0-0.1) 10^3/uL Absolute Nucleated RBC 0.00 x10^3/uL Nucleated RBC % 0.0 /100WBC Anti-Xa Level ( - 0.7) U/mL Sodium (135-145) mmol/L Potassium (3.5-5.0) mmol/L Chloride (101-111) mmol/L Carbon Dioxide (21-32) mmol/L Anion Gap (6-13) BUN (6-20) mg/dL Creatinine (0.6-1.2) mg/dL Estimated GFR (MDRD) (>89) Glucose (70-100) mg/dL Calcium (8.5-10.3) mg/dL Magnesium (1.7-2.8) mg/dL
--- NOTE | 2019-03-19 14:43 | Discharge Plan ---
Discharge Plan Problem Reviewed?: Yes Disposition: Home, Self Care Condition: Good Prescriptions: Apixaban [Eliquis] 10 mg PO BID 7 Days #28 tablet Apixaban [Eliquis] 5 mg PO BID #60 tablet Diet: Regular Activity Restrictions: Activity as Tolerated Shower Restrictions: No Driving Restrictions: No Instruction Topics: Apixaban oral tablets, Embolism Pulmonary Dc Health Concerns: You were admitted to the hospital because you are found to have blood clots in your lungs. You were started on a blood thinner to prevent further clots from developing. An ultrasound of your heart showed the right side of your heart was weak. This likely occurred because of the blood clot in your lungs. We discussed your case with the doctors at [facility] in [place] who felt that transfer may not be necessary. Because you prefer to stay in the hospital here, we kept you on the blood thinners and monitored you closely. An ultrasound of your legs showed that you have blood clots in both of your legs. This is likely the source of the blood clot in your lungs. You have been stable since you were hospitalized and are now ready for discharge. Please take the medications as prescribed. Plan of Treatment: These take Eliquis 10 mg twice a day for 1 week. You will take this higher dose from March 20-. We will then take 5 mg twice a day starting March 27. Please stop taking your blood pressure medication until you follow-up with Dr. Abarca next week. Your 2 blood pressure medications are felodipine and lisinopril. Care Goals: Please follow-up with Dr. Abarca next Saturday (March 25) at 2 PM. No Smoking: If you smoke, Please STOP! Call for help. Follow-up with: Gutierrez Abarca MD [Primary Care Provider] -
--- NOTE | 2019-03-19 15:06 | DISCHARGE SUMMARY ---
"Discharge Summary Admit Date: 03/17/19 Discharge Date: 03/19/19 Discharging Provider: Benny Goins Primary Care Provider: Gutierrez Abarca Code Status: Do Not Attempt Resuscitation Condition at Discharge: Good Discharge Disposition: 01 Home, Self Care - DIAGNOSES Admission Diagnoses: Pulmonary embolism and infarction Hypertension History of prostate cancer Discharge Diagnoses with Status of Each Condition: Submassive pulmonary embolism - He had bilateral pulmonary emboli with pulmonary infarct evident on CTA of the chest. He initially hypoxic requiring 2 L of oxygen but is now doing well on room air. He was never hypotensive throughout his stay. He was initially hypertensive with a blood pressure in the 150s to 160s and this is now stable in the 130s to 140s. Although CTA did not show evidence of right heart strain, an echocardiogram was obtained which did suggest right heart strain. The scullion chief at [facility] in [place] felt management would not change given his hemodynamic stability and recommended anticoagu lation. They did accept the patient in transfer but the patient preferred to stay here if management would not change. Dopplers of the lower extremity revealed bilateral DVTs. He was treated with heparin throughout his stay and will be discharged on [facility]. Hypertension - Blood pressure has been stable in the 130s to 140 systolic despite holding his home antihypertensives. Given the RV dysfunction on the echocardiogram and his stable blood pressures, I have asked him to hold his home antihypertensives until he follows up with his primary care physician next week. I have asked him to continue to check his blood pressure at home on a daily basis. The patient is agreeable to this. History of prostate cancer - Stable. Was diagnosed about 10 years ago and treated with a prostatectomy. He never received chemotherapy. The last PSA was normal in 2018. He will continue outpatient follow-up. - HPI History of Present Illness: This is a very pleasant 78-year-old male with a past medical history significant for hypertension, history of DVT that was treated with Coumadin, history of prostate cancer status post prostatectomy who presents today complaining of dizziness, weakness, dyspnea. He states his symptoms first began about 1 month ago we noticed that he was becoming lightheaded and dizzy when he was exerting himself. He noticed this would occur when he would go up a set of stairs. He reports some shortness of breath as well. He denies chest pain but does complain of some chest tightness over the right side. He denies any syncope or loss of consciousness. He reports once or twice he felt really weak and lightheaded that he had to get down to his knees but he never passed out. As his symptoms persisted, he went to his primary care physician this morning and was then referred to the emergency department. The patient states he is a history of DVT in his right lower extremity that was treated with Coumadin about 5 years ago and that he was treated for 1 year. He was never told what the etiology of the DVT was. He states he does have a prior history of prostate cancer about 10 years ago and that he went underwent prostatectomy. He reports no current history of cancer. He reports no family history of DVT. Denies any recent travel. He reports no cardiac history except for hypertension. States he has been having some lower extremity edema over the past month. He saw his physician who prescribed him a diuretic and he has had improvement in his edema since then. In the emergency department, he is found to be afebrile with a temperature of 37.1 C. He was tachycardic in the 90s. Blood pressure was 155/106. He was not tachypneic. He was initially saturating 94% on room air but he dropped to the high 80s and was placed on 2 L of oxygen via nasal cannula and is now saturating 93 to 94%. Labs were significant for a troponin of 36.4. His chest x-ray did not show an infiltrate. CTA of the chest showed multiple bilateral pulmonary emboli including the main pulmonary arteries and extending into the upper lobes, middle, and lower lobe pulmonary arteries. There is overall moderate clot burden. There is also bilateral pulmonary infarcts. There is no suggestion of right heart strain. The findings of the CT were discussed with the scullion chief at [facility] who felt that the patient did not want transfer at the moment. Medicine was consulted for admission. I did discuss with the patient regarding goals of care and he would like to be a DNR. - CONSULTS | PROCEDURES Procedures: Echocardiogram showed an ejection fraction of 65 to 70%. He had moderate to severe right ventricular enlargement. Right ventricular systolic function was severely impaired. Mild to moderate tricuspid regurgitation. PA pressures were 97. Duplex of the lower extremities showed left lower extremity DVT extended from the proximal femoral vein through the calf veins. The right-sided DVT extending from the distal femoral vein to the calf veins. 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 - HOSPITAL COURSE Hospital Course: Patient was admitted to the intensive care unit for close monitoring given his significant bilateral pulmonary embolism. Initially was hypoxic requiring 3 L of oxygen. An echocardiogram was obtained which showed an ejection fraction of 65 to 70% but there was moderate to severe right ventricular enlargement and right ventricular systolic function was severely impaired. PA pressures were 97 mmHg. His troponins peaked in the mid 40s. His BNP was elevated in the 900s. I spoke with the scullion chief at [facility] in [place] given the echocardiogram findings were concerning for right heart strain. The scullion chief felt that given the patient was hemodynamically stable and was not tachycardic, that management would not change and he likely would not be a candidate for thrombolytics. Despite this, they stated they would accept the patient in transfer. I relayed this information to the patient and he stated that he would prefer to stay here given management may not change. Dopplers of the lower extremities were obtained and he had bilateral DVTs. Left lower extremity DVT extended from the proximal femoral vein through the calf veins. The right-sided DVT extending from the distal femoral vein to the calf veins. 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 The patient was continued on IV heparin and he was monitored for bleeding. Showed no evidence of bleeding. His oxygen requirements improved and he is now on room air. He was able to walk around and he did not desaturate with ambulation. He was transitioned to Eliquis and discharged home. - ALLERGIES Allergies/Adverse Reactions: Allergies Allergy/AdvReac Type Severity Reaction Status Date / Time No Known Drug Allergies Allergy Verified 03/17/19 10:05 - MEDICATIONS Home Medications: Ambulatory Orders Medication Instructions Recorded Confirmed Multivitamin [Multiple Vitamins] 1 tab PO DAILY 11/04/17 03/17/19 allopurinoL [Allopurinol] 300 mg PO DAILY 03/17/19 03/17/19 Apixaban [Eliquis] 5 mg PO BID #60 tablet 03/19/19 Apixaban [Eliquis] 10 mg PO BID 7 Days #28 tablet 03/19/19 - PHYSICAL EXAM AT DISCHARGE General Appearance: positive: No acute distress, Alert Eyes Bilateral: positive: Normal inspection ENT: positive: ENT inspection nml Neck: positive: Nml inspection Respiratory: positive: No respiratory distress. negative: Wheezes, Rales, Rhonchi Cardiovascular: positive: Regular rate & rhythm, No murmur. negative: Tachycardia, Bradycardia, Systolic murmur, Diastolic murmur Abdomen: positive: Non-tender, No distention. negative: Tenderness Skin: positive: No rash, Warm, Dry Extremities: positive: Full ROM, Pedal edema (He has trace to +1 pitting edema in the bilateral lower extremities.) Neurologic/Psychiatric: positive: Oriented x3. negative: Disoriented to person, Disoriented to place, Disoriented to time - LABS Result Diagrams: 03/19/19 09:07 03/19/19 04:55 - DIAGNOSTIC IMAGING Diagnostic Imaging Results: Final report reviewed - FOLLOW UP Follow Up: He will follow-up with his primary care physician on March 25 at 2 PM. - TIME SPENT Time Spent in Discharge (Minutes): 40"
[2019-03-19 15:47] VITALS: BP 162/88
[2019-03-19] MEDS ORDERED: APIXABAN 5 MG TABLET PO SCH (17:00)
== END 2019-03-19 17:19 | disposition home or self-care (01) | DRG 176 ==
LOC: ED 09:57 → ICU 15:31 → MS2 03-18 18:38
PROVIDERS: ADMIT Internal Medicine; ATTEND Internal Medicine
DX: I26.99 Other pulmonary embolism without acute cor pulmonale (principal); I82.413 Acute embolism and thrombosis of femoral vein, bilateral; I11.9 Hypertensive heart disease without heart failure; I08.2 Rheumatic disorders of both aortic and tricuspid valves; M10.9 Gout, unspecified; Z85.46 Personal history of malignant neoplasm of prostate; Z90.79 Acquired absence of other genital organ(s); Z86.718 Personal history of other venous thrombosis and embolism
CPT/HCPCS: 36415; 71046; 71275; 80048; 80053; 82272; 83690; 83735; 83880; 84484; 85025; 85027; 85379; 85520; 85610; 87150; 93005; 93306; 93970; 96365; 99285; 99291; A9270; Q9967

== ENCOUNTER 2019-12-02 09:51 | Outpatient (CLI) | payer MEDICARE, OTHER ==
[2019-12-02 16:20] LABS: BASOPHILS % (AUTO) 0.3 %; EOSINOPHILS # (AUTO) 0.2 10^3/uL (0.0-0.7); EOSINOPHILS % (AUTO) 2.7 %; HGB - HEMOGLOBIN 16.1 g/dL (14.0-18.0); LYMPHOCYTES # (AUTO) 1.6 10^3/uL (1.5-3.5); LYMPHOCYTES % (AUTO) 24.8 %; MEAN CORPUSCULAR HEMOGLOBIN 31.8 pg (27.0-31.0); MEAN CORPUSCULAR HGB CONC 32.5 g/dL (32.0-36.0); MEAN CORPUSCULAR VOLUME 97.8 fL (80.0-94.0); MEAN PLATELET VOLUME 11.6 fL (7.4-11.4); MONOCYTES # (AUTO) 0.9 10^3/uL (0.0-1.0); MONOCYTES % (AUTO) 14.3 %; NEUTROPHILS # (AUTO) 3.8 10^3/uL (1.5-6.6); NEUTROPHILS % (AUTO) 57.7 %; PLT - PLATELET COUNT 206 10^3/uL (130-450); RED BLOOD COUNT 5.06 10^6/uL (4.70-6.10); WHITE BLOOD COUNT 6.6 x10^3/uL (4.8-10.8)
[2019-12-02 16:40] LABS: ALBUMIN/GLOBULIN RATIO 1.3 (1.0-2.2); ALKALINE PHOSPHATASE 58 IU/L (42-121); ALT ALANINE AMINOTRANSFERASE 15 IU/L (10-60); AST ASPARTATE AMINOTRANSFERASE 26 IU/L (10-42); BILIRUBIN,TOTAL 1.1 mg/dL (0.2-1.0); BUN - BLOOD UREA NITROGEN 22 mg/dL (6-20); CALCIUM 9.4 mg/dL (8.5-10.3); CARBON DIOXIDE - CO2 27 mmol/L (21-32); CHLORIDE 105 mmol/L (101-111); CHOL/HDL RATIO 2.5 (<5.0); CHOLESTEROL 202 mg/dL; CREATININE 0.8 mg/dL (0.6-1.2); GLUCOSE 82 mg/dL (70-100); HDL CHOLESTEROL 80 mg/dL; LDL CHOLESTEROL,CALCULATED 102 mg/dL; LDL/HDL RATIO 1.3 (<3.6); SODIUM 141 mmol/L (135-145); TOTAL PROTEIN 7.2 g/dL (6.7-8.2); URIC ACID 3.1 mg/dL (2.6-7.2); VLDL CHOLESTEROL 20 mg/dL
== END 2019-12-02 09:52 | disposition home or self-care (01) ==
LOC: LAB.S 09:51
PROVIDERS: ATTEND Internal Medicine
DX: E78.5 Hyperlipidemia, unspecified (principal); M10.9 Gout, unspecified; Z79.01 Long term (current) use of anticoagulants
CPT/HCPCS: 36415; 80053; 80061; 83721; 84550; 85025

== ENCOUNTER 2020-07-15 08:30 | Outpatient (CLI) | payer MEDICARE, OTHER ==
[2020-07-15 14:30] LABS: BASOPHILS % (AUTO) 0.3 %; EOSINOPHILS # (AUTO) 0.1 10^3/uL (0.0-0.7); EOSINOPHILS % (AUTO) 1.5 %; HCT - HEMATOCRIT 45.3 % (42.0-52.0); LYMPHOCYTES # (AUTO) 1.4 10^3/uL (1.5-3.5); LYMPHOCYTES % (AUTO) 18.3 %; MEAN CORPUSCULAR HEMOGLOBIN 32.3 pg (27.0-31.0); MEAN CORPUSCULAR HGB CONC 33.1 g/dL (32.0-36.0); MEAN CORPUSCULAR VOLUME 97.6 fL (80.0-94.0); MEAN PLATELET VOLUME 11.7 fL (7.4-11.4); MONOCYTES # (AUTO) 1.2 10^3/uL (0.0-1.0); NEUTROPHILS # (AUTO) 4.7 10^3/uL (1.5-6.6); NEUTROPHILS % (AUTO) 63.6 %; PLT - PLATELET COUNT 190 10^3/uL (130-450); RED BLOOD COUNT 4.64 10^6/uL (4.70-6.10); RED CELL DISTRIBUTION WIDTH 13.9 % (12.0-15.0); WHITE BLOOD COUNT 7.4 x10^3/uL (4.8-10.8)
[2020-07-15 15:39] LABS: ALBUMIN/GLOBULIN RATIO 1.3 (1.0-2.2); CALCIUM 8.9 mg/dL (8.5-10.3); POTASSIUM 3.5 mmol/L (3.5-5.0); TOTAL PROTEIN 7.2 g/dL (6.7-8.2)
== END 2020-07-15 08:31 | disposition home or self-care (01) ==
LOC: LAB.S 08:30
PROVIDERS: ATTEND Internal Medicine
DX: I10 Essential (primary) hypertension (principal)
CPT/HCPCS: 36415; 80053; 85025

== ENCOUNTER 2021-03-27 09:41 | Outpatient (CLI) | payer MEDICARE, OTHER ==
[2021-03-27 15:09] LABS: BASOPHILS % (AUTO) 0.4 %; EOSINOPHILS # (AUTO) 0.1 10^3/uL (0.0-0.7); EOSINOPHILS % (AUTO) 2.4 %; HCT - HEMATOCRIT 42.2 % (42.0-52.0); LYMPHOCYTES # (AUTO) 1.7 10^3/uL (1.5-3.5); LYMPHOCYTES % (AUTO) 31.5 %; MEAN CORPUSCULAR HEMOGLOBIN 31.3 pg (27.0-31.0); MEAN CORPUSCULAR HGB CONC 33.2 g/dL (32.0-36.0); MEAN CORPUSCULAR VOLUME 94.4 fL (80.0-94.0); MEAN PLATELET VOLUME 11.9 fL (7.4-11.4); MONOCYTES # (AUTO) 0.7 10^3/uL (0.0-1.0); MONOCYTES % (AUTO) 13.5 %; NEUTROPHILS # (AUTO) 2.8 10^3/uL (1.5-6.6); PLT - PLATELET COUNT 214 10^3/uL (130-450); RED BLOOD COUNT 4.47 10^6/uL (4.70-6.10); RED CELL DISTRIBUTION WIDTH 13.1 % (12.0-15.0); WHITE BLOOD COUNT 5.4 x10^3/uL (4.8-10.8)
[2021-03-27 15:47] LABS: ALBUMIN 3.8 g/dL (3.2-5.5); ALBUMIN/GLOBULIN RATIO 1.1 (1.0-2.2); ALKALINE PHOSPHATASE 50 IU/L (42-121); ALT ALANINE AMINOTRANSFERASE 17 IU/L (10-60); AST ASPARTATE AMINOTRANSFERASE 27 IU/L (10-42); BILIRUBIN,TOTAL 1.1 mg/dL (0.2-1.0); BUN - BLOOD UREA NITROGEN 18 mg/dL (6-20); CALCIUM 9.4 mg/dL (8.5-10.3); CARBON DIOXIDE - CO2 27 mmol/L (21-32); CHLORIDE 107 mmol/L (101-111); CHOL/HDL RATIO 3.4 (<5.0); CHOLESTEROL 229 mg/dL; CREATININE 0.9 mg/dL (0.6-1.2); GFR - MDRD 81 (>89); GLUCOSE 87 mg/dL (70-100); HDL CHOLESTEROL 67 mg/dL; LDL CHOLESTEROL,CALCULATED 139 mg/dL; LDL/HDL RATIO 2.1 (<3.6); POTASSIUM 3.8 mmol/L (3.5-5.0); SODIUM 141 mmol/L (135-145); TOTAL PROTEIN 7.2 g/dL (6.7-8.2); TRIGLYCERIDES 116 mg/dL; VLDL CHOLESTEROL 23 mg/dL
== END 2021-03-27 09:42 | disposition home or self-care (01) ==
LOC: LAB.S 09:41
PROVIDERS: ATTEND Internal Medicine
DX: I10 Essential (primary) hypertension (principal); E78.5 Hyperlipidemia, unspecified
CPT/HCPCS: 36415; 80053; 80061; 83721; 85025

== ENCOUNTER 2021-06-28 09:18 | Outpatient (CLI) | payer MEDICARE, OTHER | END 2021-06-28 23:59 | disposition home or self-care (01) | LOC: LAB.S 09:18 | PROVIDERS: ATTEND Emergency Medicine | DX: I26.99 Other pulmonary embolism without acute cor pulmonale (principal); Z79.01 Long term (current) use of anticoagulants | CPT/HCPCS: 36415; 85379 ==

== ENCOUNTER 2022-04-26 08:22 | Outpatient (CLI) | payer MEDICARE, OTHER ==
[2022-04-26 14:38] LABS: BASOPHILS % (AUTO) 0.3 %; EOSINOPHILS # (AUTO) 0.2 10^3/uL (0.0-0.7); EOSINOPHILS % (AUTO) 2.7 %; HCT - HEMATOCRIT 39.2 % (42.0-52.0); HGB - HEMOGLOBIN 12.5 g/dL (14.0-18.0); LYMPHOCYTES # (AUTO) 1.6 10^3/uL (1.5-3.5); LYMPHOCYTES % (AUTO) 25.9 %; MEAN CORPUSCULAR HEMOGLOBIN 29.4 pg (27.0-31.0); MEAN CORPUSCULAR HGB CONC 31.9 g/dL (32.0-36.0); MEAN CORPUSCULAR VOLUME 92.2 fL (80.0-94.0); MEAN PLATELET VOLUME 11.6 fL (7.4-11.4); MONOCYTES # (AUTO) 0.9 10^3/uL (0.0-1.0); MONOCYTES % (AUTO) 14.8 %; NEUTROPHILS # (AUTO) 3.5 10^3/uL (1.5-6.6); NEUTROPHILS % (AUTO) 56.1 %; PLT - PLATELET COUNT 218 10^3/uL (130-450); RED BLOOD COUNT 4.25 10^6/uL (4.70-6.10); RED CELL DISTRIBUTION WIDTH 14.2 % (12.0-15.0); WHITE BLOOD COUNT 6.3 x10^3/uL (4.8-10.8)
[2022-04-26 14:51] LABS: ALBUMIN 3.6 g/dL (3.2-5.5); ALBUMIN/GLOBULIN RATIO 1.2 (1.0-2.2); ALKALINE PHOSPHATASE 54 IU/L (42-121); ALT ALANINE AMINOTRANSFERASE 13 IU/L (10-60); AST ASPARTATE AMINOTRANSFERASE 22 IU/L (10-42); BILIRUBIN,TOTAL 0.8 mg/dL (0.2-1.0); BUN - BLOOD UREA NITROGEN 17 mg/dL (6-20); CARBON DIOXIDE - CO2 28 mmol/L (21-32); CHLORIDE 107 mmol/L (101-111); CHOL/HDL RATIO 2.9 (<5.0); CHOLESTEROL 211 mg/dL; CREATININE 0.9 mg/dL (0.6-1.2); GFR - MDRD 81 (>89); GLUCOSE 92 mg/dL (70-100); HDL CHOLESTEROL 73 mg/dL; LDL CHOLESTEROL,CALCULATED 126 mg/dL; LDL/HDL RATIO 1.7 (<3.6); SODIUM 142 mmol/L (135-145); TOTAL PROTEIN 6.7 g/dL (6.7-8.2); TRIGLYCERIDES 59 mg/dL; VLDL CHOLESTEROL 12 mg/dL
== END 2022-04-26 08:23 | disposition home or self-care (01) ==
LOC: LAB.S 08:22
PROVIDERS: ATTEND Registered Nurse
DX: E78.5 Hyperlipidemia, unspecified (principal); Z79.899 Other long term (current) drug therapy
CPT/HCPCS: 36415; 80053; 80061; 83721; 85025

== ENCOUNTER 2022-10-31 10:14 | Outpatient (CLI) | payer OTHER, MEDICARE | END 2022-10-31 23:59 | disposition EMS.NT | LOC: EMS 10:14 | DX: S01.81XA Laceration without foreign body of other part of head, initial encounter (principal); V49.9XXA Car occupant (driver) (passenger) injured in unspecified traffic accident, initial encounter; Y92.413 State road as the place of occurrence of the external cause ==

== ENCOUNTER 2022-10-31 11:44 | Emergency (ER) | payer OTHER, MEDICARE ==
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
--- NOTE | 2022-10-31 12:39 | CT Report ---
PROCEDURE: HEAD WO INDICATIONS: head inj TECHNIQUE: Noncontrast 4.5 mm thick angled axial sections acquired from the foramen magnum to the vertex. For r adiation dose reduction, the following was used: automated exposure control, adjustment of mA and/or kV according to patient size. COMPARISON: None. FINDINGS: Image quality: Excellent. The ventricular system and cortical sulci demonstrate atrophy, consistent for patient's stated age. There are areas of hypodensity in the periventricular and subcortical white matter. There is no acut e intra or extra-axial fluid collection. No acute hemorrhage, mass lesion or midline shift. Brainst em is unremarkable. Globes are symmetrical. Sinuses are aerated. Osseous structures are intact. IMPRESSION: 1. No acute intracranial process. 2. Moderate atrophy and chronic microvascular ischemic changes. Reviewed by: Felicita Ramirez MD on 10/31/2022 12:37 PM PDT Approved by: Felicita Ramirez MD on 10/31/2022 12:37 PM PDT Station ID: [id number]
--- NOTE | 2022-10-31 12:47 | XRAY Report ---
PROCEDURE: Knee 4 View LT INDICATIONS: knee inj TECHNIQUE: 4 views of the left knee(s) were acquired. COMPARISON: None. FINDINGS: Bones: No fractures or dislocations. No suspicious bony lesions. Lucency is present along the sup erior patellar osteophyte. Soft tissues: Prominent soft tissue edema is noted along the medial aspect of the distal thigh.. No s uspicious soft tissue calcifications or masses. IMPRESSION: Patellar osteophyte lucency which may represent osteophyte fracture of indeterminate age. Prominent distal size soft tissue edema. This could represent hematoma. Reviewed by: Felicita Ramirez MD on 10/31/2022 12:46 PM PDT Approved by: Felicita Ramirez MD on 10/31/2022 12:46 PM PDT Station ID: [id number]
[2022-10-31 13:44] VITALS: BP 175/81; O2SAT 98
== END 2022-10-31 14:06 | disposition home or self-care (01) ==
LOC: ED 11:44
DX: S80.02XA Contusion of left knee, initial encounter (principal); S00.81XA Abrasion of other part of head, initial encounter; V43.52XA Car driver injured in collision with other type car in traffic accident, initial encounter; I10 Essential (primary) hypertension; Z87.891 Personal history of nicotine dependence; I48.91 Unspecified atrial fibrillation; Z79.01 Long term (current) use of anticoagulants
CPT/HCPCS: 36415; 99283; 99284

== ENCOUNTER 2022-11-08 08:00 | Outpatient (CLI) | payer MEDICARE, OTHER ==
--- NOTE | 2022-11-08 13:06 | XRAY Report ---
PROCEDURE: Knee 4 View LT INDICATIONS: LEFT KNEE PAIN TECHNIQUE: 4 views of the left knee(s) were acquired. COMPARISON: Left knee radiographs 10/31/2022 FINDINGS: Bones: Redemonstrated superior patellar osteophyte fracture, age-indeterminate, minimally displaced. Multicompartmental degenerative changes of the knee present. Soft tissues: No knee joint effusion. No suspicious soft tissue calcifications. IMPRESSION: Redemonstrated superior patellar osteophyte fracture, age-indeterminate, minimally displaced. If symptoms persist, follow-up radiographs and/or CT or MRI may be helpful for further evaluation. Reviewed by: Patrick Stanford MD on 11/08/2022 1:05 PM PDT Approved by: Patrick Stanford MD on 11/08/2022 1:05 PM PDT Station ID: [id number]
== END 2022-11-08 23:59 | disposition home or self-care (01) ==
LOC: DI.WOS 08:00
PROVIDERS: ATTEND Physician Assistant Surgical
DX: S82.002D Unspecified fracture of left patella, subsequent encounter for closed fracture with routine healing (principal)

== ENCOUNTER 2023-06-04 08:00 | Outpatient (CLI) | payer MEDICARE, OTHER ==
--- NOTE | 2023-06-04 16:03 | XRAY Report ---
PROCEDURE: Knee 4 View LT INDICATIONS: LEFT KNEE PAIN TECHNIQUE: 4 views of the knee(s) were acquired. COMPARISON: None. FINDINGS: Bones: Redemonstration of superior patellar osteophyte fracture. No acute fractures are seen. Minima l osteophytosis and mild medial compartment joint space narrowing. No suspicious bony lesions. Stabl e prominent tibial tuberosity. Soft tissues: Small knee joint effusion. No suspicious soft tissue calcifications or masses. Prepate llar soft tissue swelling. Atherosclerotic vascular calcifications. IMPRESSION: 1.Mild degenerative changes of the left knee, most pronounced within the medial compartment. 2.Redemonstration of superior patellar osteophyte fracture. No acute fractures are seen. 3.Prepatellar soft tissue swelling, may represent prepatellar bursitis. Reviewed by: Jaiden Ponce MD on 06/04/2023 4:02 PM PDT Approved by: Jaiden Ponce MD on 06/04/2023 4:02 PM PDT Station ID: [id number]
== END 2023-06-04 23:59 | disposition home or self-care (01) ==
LOC: DI.WOS 08:00
PROVIDERS: ATTEND Physician Assistant Surgical
DX: S80.02XA Contusion of left knee, initial encounter (principal); M17.12 Unilateral primary osteoarthritis, left knee; M25.762 Osteophyte, left knee; R93.6 Abnormal findings on diagnostic imaging of limbs; R93.89 Abnormal findings on diagnostic imaging of other specified body structures

== ENCOUNTER 2023-11-18 08:00 | Outpatient (CLI) | payer OTHER, MEDICARE ==
--- NOTE | 2023-11-18 20:00 | XRAY Report ---
PROCEDURE: Chest 2V INDICATIONS: DIZZINESS, MALAISE TECHNIQUE: 2 views of the chest were acquired. COMPARISON: None. FINDINGS: Surgical changes and devices: None. Lungs and pleura: No pleural effusions or pneumothorax. Lungs are clear. Mediastinum: Mediastinal contours appear normal. Heart size is normal. Bones and chest wall: No suspicious bony lesions. Overlying soft tissues appear unremarkable. IMPRESSION: No acute cardiopulmonary process. Reviewed by: Aureliano Gaffney MD on 11/18/2023 7:58 PM PDT Approved by: Aureliano Gaffney MD on 11/18/2023 7:58 PM PDT Station ID: [id number]
== END 2023-11-18 23:59 | disposition home or self-care (01) ==
LOC: DI.S 08:00
PROVIDERS: ATTEND Registered Nurse
DX: R53.81 Other malaise (principal); R42 Dizziness and giddiness; R32 Unspecified urinary incontinence